=== PATIENT | male | born 1945 | race Caucasian/White ===

== ENCOUNTER 2017-02-26 11:00 | Inpatient (IN) | payer MEDICARE, OTHER ==
[2017-03-03] MEDS ORDERED: ceFAZolin/DEXTROSE,ISO 2 GM/50 ML PIGGYBACK IV ONE (09:31)
[2017-03-03] MEDS ORDERED: TRANEXAMIC ACID 1,000 MG in NORMAL SALINE 100 ML IV SCH (09:31)
--- NOTE | 2017-03-06 14:40 | PREOPERATIVE H&P ---
History of Present Illness (Juan M Lindsey MD; 02/16/2017 11:41 AM) The patient is a 71 year old male who presents to the practice today for a who presents to the practice today for a transition into care. Note:: The patient is here for a follow-up with severe osteoarthritis of both of his knees. He has come in today because he is interested in scheduling knee replacement for his left knee. Allergies (Taylor Hernandez RN; 02/16/2017 10:16 AM) No Known Drug Allergies Family History (Taylor Hernandez RN; 02/16/2017 10:16 AM) Father @ 52 of [place] Mother @ 92 of CHF, HTN, Glaucoma Social History (Taylor Hernandez RN; 02/16/2017 10:16 AM) Tobacco Use non smoker Alcohol Use Drinks Rarely. Medication History (Taylor Hernandez RN; 02/16/2017 10:16 AM) Coreg (12.5MG Tablet, 1 (one) Oral two times daily, Taken starting 03/24/2012) Active. (entry data only) Valtrex (1GM Tablet, 2 Oral Q12hrs x 2 doses prn cold sores, Taken starting 03/2015) Active. Terazosin HCl (10MG Capsule, 1 Oral QHS, Taken starting 01/23/2016) Active. TraMADol HCl (50MG Tablet, 1 Oral QHS, plus 1 extra tab daily prn pain, Taken starting 08/19/2016) Active. Sanjana 128 (2% Solution, 1 gtt both eyes Ophthalmic four times daily) Active. Sanjana 128 (5% Ointment, both eyes Ophthalmic at bedtime) Active. Pravastatin Sodium (20MG Tablet, 1 tablet Oral at bedtime) Active. (Per Dr Meek) Melatonin (3MG Tablet, 1 Oral at bedtime) Active. Carvedilol (12.5MG Tablet, 1 tab Oral two times daily) Active. Amoxicillin (500MG Capsule, 4 Oral before dental) Active. Tylenol PM Extra Strength (one Oral at HS as needed) Specific dose unknown - Active. Lisinopril-Hydrochlorothiazide (20-25MG Tablet, one Oral daily) Active. Aleve (220MG Tablet, 2 Oral twice a day) Active. Medications Reconciled Vitals (Taylor Hernandez RN; 02/16/2017 10:15 AM) 02/16/2017 10:12 AM Weight: 261 lb Height: 64in Body Surface Area: 2.19 m Body Mass Index: 44.8 kg/m Temp.: 98F Pulse: 74 (Regular) Resp.: 16 (Unlabored) BP: 128/62 (Sitting, Left Arm, Standard) Physical Exam (Juan M Lindsey MD; 02/16/2017 11:42 AM) Musculoskeletal Note: : Physical examination today reveals that he has no appreciable soft tissue swelling or effusion. He does have full extension, and flexes 125. There is no varus or valgus instability. He is somewhat tender to palpation medially and laterally. There is no warmth or erythema. X-ray evaluation: We reviewed his previous radiographs, and again he has marked joint space narrowing especially in the lateral compartment as well as osteophyte formation both medially and laterally. He also has severe patellofemoral arthrosis. Assessment & Plan (Juan M Lindsey MD; 02/16/2017 11:43 AM) Primary localized osteoarthritis of both knees (M17.0) Note:: Assessment: Severe osteoarthritis of both knees. Plan: We again discussed treatment options, and he would like to pursue knee replacement surgery of his left knee. We will therefore seek medical clearance , and then plan on scheduling his procedure. We should see him shortly before that date to perform his preoperative evaluation. Signed by Juan M Lindsey MD (02/16/2017 11:44 AM) ERNESTO
== END 2017-03-03 10:59 | disposition home or self-care (01) | DRG 554 ==
LOC: IN 03-03 09:20
PROVIDERS: ADMIT Orthopaedic Surgery; ATTEND Orthopaedic Surgery
DX: M17.0 Bilateral primary osteoarthritis of knee (principal); Z53.09 Procedure and treatment not carried out because of other contraindication

== ENCOUNTER 2017-03-10 08:29 | Inpatient (IN) | payer MEDICARE, OTHER ==
--- NOTE | 2017-03-09 17:46 | HISTORY & PHYSICAL ---
DATE OF ADMISSION: 03/10/17 SURGEON: Juan M Lindsey MD ADMITTING DIAGNOSIS: Severe osteoarthritis of the left knee. HISTORY OF PRESENT ILLNESS: The patient is a 71-year-old male with a long standing history of osteoarthritis of his left knee. He has gone through many years of nonoperative treatment and his symptoms have become quite intolerable and have limited his activities of daily living. He is therefore being admitted for left total knee arthroplasty. PAST MEDICAL HISTORY 1. Coronary artery disease. 2. Hypertension. 3. Morbid obesity. 4. Hyperlipidemia. 5. Benign prostatic hypertrophy. 6. Venous stasis. 7. Sleep apnea. PAST SURGICAL HISTORY 1. Hip replacement of the right in 2008. 2. Hip replacement of the left in 2009. 3. Rotator cuff repair. 4. Appendectomy. MEDICATIONS Terazosin. Valtrex. Coreg. Melatonin. Carvedilol. Sanjana 128 2% solution. Pravastatin. Lisinopril. Aleve as needed. Tramadol as needed. ALLERGIES: No known drug allergies. SOCIAL HISTORY: The patient is a nonsmoker and reports rare alcohol use. FAMILY HISTORY: Noncontributory. REVIEW OF SYSTEMS: Negative for chest pain or shortness of breath. He has not had any unexplained fever or chills and has otherwise been healthy lately. Review of systems is otherwise noncontributory. PHYSICAL EXAMINATION GENERAL: Morbidly obese in no apparent distress. Alert and oriented x3. HEENT: Atraumatic/normocephalic. EOMI. NECK: Supple without adenopathy. CHEST: Regular rate and rhythm without murmur. LUNGS: Clear to auscultation. ABDOMEN: Soft, nontender. Normoactive bowel sounds. EXTREMITY: He has range of motion in his left knee to 0-130 degrees. There is no varus or valgus instability and a negative Tesfaye. He is tender to palpation both at the medial and lateral joint lines. There is no warmth or erythema and no effusion at this time. NEUROLOGIC: Nonfocal. IMAGING: Plain radiographs of the knee reveal that he has marked joint space narrowing on both sides with osteophyte formation both medially and laterally and fairly severe patellofemoral arthroses. ASSESSMENT: Severe osteoarthritis of the left knee. PLAN: The patient will be admitted to the hospital for left total knee arthroplasty. We have discussed the operation, risks, and indications. The risks of the procedure include but are not limited to blood loss or nerve injury , infection, persistent pain and stiffness or loss of motion of the knee, premature failure or loosening of the implants or deep vein thrombosis which would potentially lead to a fatal pulmonary embolism. The patient has acknowledged the risks and desires to go ahead and proceed as planned. ERNESTO
[2017-03-10] MEDS ORDERED: LIDOCAINE HCL 1% 20 ML VIAL SUBCUT ONE ×3 (09:32→11:50)
[2017-03-10] MEDS ORDERED: MIDAZOLAM HCL 2 MG/2 ML SYR IV ONE ×2 (09:32→09:33)
[2017-03-10] MEDS ORDERED: TRANEXAMIC ACID 1,000 MG in NORMAL SALINE 100 ML IV SCH ×5 (09:39→12:00)
[2017-03-10] MEDS ORDERED: NORMAL SALINE FLUSH 20 ML ONE (09:40)
[2017-03-10] MEDS ORDERED: MORPHINE SULFATE/PF 10 MG/10 ML VIAL ONE (09:40)
[2017-03-10] MEDS ORDERED: FENTANYL 100 MCG/2 ML VIAL ONE (09:40)
[2017-03-10] MEDS ORDERED: PHENYLEPHRINE HCL 10,000 MCG/ML VIAL ONE (09:40)
[2017-03-10] MEDS ORDERED: TETRACAINE HCL 1% 20 MG/2 ML AMP ONE (09:41)
[2017-03-10] MEDS ORDERED: EPHEDrine SULFATE 50 MG/ML VIAL ONE (09:41)
[2017-03-10] MEDS ORDERED: ceFAZolin 1 GM/10 ML VIAL ONE ×2 (09:42→09:57)
[2017-03-10] MEDS ORDERED: NORMAL SALINE MINI-BAG+ 200 ML IV ONE (09:43)
[2017-03-10] MEDS ORDERED: FAMOTIDINE IN SALINE, ISO-OSM 20 MG/50 ML PIGGYBACK IV SCH ×2 (09:45→11:50)
[2017-03-10] MEDS ORDERED: ceFAZolin/DEXTROSE,ISO 2 GM/50 ML PIGGYBACK IV ONE ×3 (10:00→11:50)
[2017-03-10] MEDS ORDERED: LACTATED RINGERS 1,000 ML IV SCH ×5 (10:00→12:00)
[2017-03-10] MEDS ORDERED: NORMAL SALINE FLUSH 40 ML ONE (10:00)
[2017-03-10] MEDS ORDERED: KETOROLAC TROMETHAMINE 30 MG/ML VIAL ONE (10:01)
[2017-03-10] MEDS ORDERED: MIDAZOLAM HCL 2 MG/2 ML VIAL ONE ×2 (10:01→10:39)
[2017-03-10] MEDS ORDERED: ROPIVACAINE HCL 0.5% 30 ML ONE (10:01)
[2017-03-10] MEDS ORDERED: LIDOCAINE HCL/PF 1% 30 ML VIAL ONE (10:15)
[2017-03-10] MEDS ORDERED: DIPHENHYDRAMINE 25 MG CAPSULE PO PRN ×4 (11:47→13:56)
[2017-03-10] MEDS ORDERED: ONDANSETRON HCL 4 MG/2 ML VIAL IV PRN ×3 (11:47→13:56)
[2017-03-10] MEDS ORDERED: FENTANYL 100 MCG/2 ML VIAL IV PRN ×2 (11:47→11:50)
[2017-03-10] MEDS ORDERED: NALBUPHINE HCL 10 MG/ML AMP IV PRN ×4 (11:47→13:56)
[2017-03-10] MEDS ORDERED: DIPHENHYDRAMINE 50 MG/ML VIAL IV PRN ×4 (11:47→13:56)
[2017-03-10] MEDS ORDERED: NALOXONE HCL 0.4 MG/ML VIAL IV PRN ×12 (11:47→13:56)
[2017-03-10] MEDS ORDERED: MORPHINE SULFATE 10 MG/ML SYR IV PRN ×2 (11:47→11:50)
[2017-03-10] MEDS ORDERED: BUPIVACAINE/EPI 0.25% 1 VIAL VIAL ONE (12:59)
--- NOTE | 2017-03-10 13:14 | PROCEDURE NOTE: Orthopedics ---
Orthopedic Procedure note - Brief Operative Note Date of procedure: 03/10/17 Pre-Op Diagnosis: PRIMARY OSTEOARTHRITIS OF LEFT KNEE Post-op diagnosis: same Procedure: L TKA Implants: CAMILO. TIBIA LOT [id number] REF [id number] EXP 12/26/2026. FEMUR LOT [id number] REF [id number] EXP 05/28/2025. PATELLA LOT [id number] REF [id number] EXP 09/27/2024. ARTICULAR SURFACE MEDIAL CONGRUENT LEFT 10 MM REF# [id number], LOT#[id number], EXP.DATE:06/2021 Anesthesia Type: Spinal Physician: LETITIA SANCHEZ Estimated Blood Loss: 10 Total Tourniquet Time (mins): 120 Specimen/Pathology: none sent Sponge/instrument count: correct X-ray/Fluoroscopy: No Condition: stable Disposition: PACU
[2017-03-10] MEDS ORDERED: DEXTROSE 5% LACTATED RINGERS 1,000 ML IV SCH (14:00)
[2017-03-10] MEDS ORDERED: WATER IRRIG 1,000 ML BOTTLE ONE (14:57)
[2017-03-10] MEDS: ceFAZolin 1 GM in NORMAL SALINE MINI-BAG+ 100 ML IV SCH ×2 (15:20→22:21)
[2017-03-10] MEDS ORDERED: TRANEXAMIC ACID 1,000 MG/10 ML VIAL IV ONE (16:00)
[2017-03-10] MEDS ORDERED: SODIUM CHLORIDE OP SCH (16:00)
[2017-03-10] MEDS ORDERED: [UNRECOGNIZED DRUG - OTHER] OP SCH (16:00)
[2017-03-10] MEDS: POLYVINYL ALCOHOL 1.4% OPHTH 75 DROP/15 ML BTL OPHTHALMIC SCH ×2 (17:00→20:20)
--- NOTE | 2017-03-10 19:49 | OPERATIVE REPORT ---
DATE OF SURGERY: 03/10/17 SURGEON: Juan M Lindsey MD PREOPERATIVE DIAGNOSIS: Severe osteoarthritis of the left knee. POSTOPERATIVE DIAGNOSIS: Severe osteoarthritis of the left knee. PROCEDURE PERFORMED: Left total knee arthroplasty. IMPLANTS USED: Abel Persona knee system with a size 8 uncemented femoral component, a size E cemented tibial tray and 10 mm medial congruent polyethylene insert. INDICATIONS FOR PROCEDURE: Patient is a 71-year-old male with a long standing history of severe osteoarthritis of the both of his knees, with the left being worse than the right. He has failed oil heaterman nonoperative management, and his symptoms have begun to severely limit his activities of daily living. He was therefore taken to the operating room for left total knee arthroplasty. SUMMARY: After informed consent was obtained, the patient was taken to the operating room where he was placed in the supine position under spinal block anesthesia. After adequate anesthesia was achieved, the left knee and lower extremity were prepped and draped in the usual sterile fashion, the limb was gently exsanguinated, and a tourniquet was inflated about the proximal thigh to 275 mmHg. A longitudinal incision was then performed over the anterior aspect of the knee and the underlying soft tissue was sharply dissected to reveal the extensor retinaculum. The extensor retinaculum was incised in a median parapatellar fashion, and then sharp dissection was carried out medially in order to expose the medial tibial plateau. The infrapatellar pat pad was then excised, and then a synovectomy was performed in the suprapatellar pouch. The knee was brought up into flexion, and the anterior cruciate ligament was resected, and a meniscectomy was performed. The medullary drill was used to enter the medullary canal, after which the intramedullary guide was pushed up into the canal. The distal femoral cutting guide was then positioned on the femur and held in position using pins. A distal femoral cut was performed at initially 10 mm, although we did take an additional 2 mm after the first cut appeared to be somewhat inadequate. The cutting guide was then removed, and attention was then focused on the proximal tibia. The tibial guide was positioned in order to allow 10 mm from the medial less involved side. The guide was then again held in place with pins, and then the proximal tibial cut was performed using an oscillating saw. We then brought the knee out into extension, and put the 10 mm spacing block into the knee. The knee was noted to easily achieve full extension with the spacer block and had good varus and valgus stability. Therefore, the knee was brought back up into flexion, and the distal femur was measured at a size 8. The 4-way cutting block was positioned on the distal femur , and then held in place using pins. The remaining femoral cuts were then performed using an oscillating saw. The femoral trial component was then tapped onto the distal femur, and the tibial trial component with the trial insert were placed into the proximal tibia. At that time, the proximal tibia was measured to a size E. The knee was then brought out into extension and noted to easily achieve full extension. Once again, he was noted to have very good varus and valgus stability and also had very good roll back with flexion. The knee was then brought out into extension, and the proximal tibia was marked for proper rotation using electrocautery. The patella was then measured and templated, after which the back side of the patella was resected using the patellar cutting guide and the oscillating saw. The drill template was then used to drill the lug holes into the patella, and then the patellar trial component was placed onto the back side of the patella. The patella was then reduced, and the knee was brought through a range of motion. The patella was noted to be somewhat unstable laterally, so we did perform a lateral release. Following the lateral release, the patella was noted to track quite well. Therefore, the trial patella was removed, and the knee was brought back up into flexion. The lug holes were then drilled into the distal femur, and then the remaining trial components were removed. The tibial tray was then repositioned with proper rotation and then completion of the proximal tibia was performed using the drill and keyhole punch. All the bony surfaces were then irrigated with copious amounts of sterile saline under pulsatile lavage, and the knee was brought into extension and extensively irrigated using pulsatile lavage. The excess fluid was drained from the knee while the plumber's assistant was mixing cement, and then the orthopedic cocktail was injected into the posterior capsule as well as the medial and lateral joint capsules. The knee was brought back up into flexion, at which time the tibial surface was carefully cleaned and dried, after which the tibial tray was cemented into position. The excess cement was removed, and then the uncemented femoral component was taped into position. The trial insert was placed back into the knee, and the knee was brought out back into extension in order to allow the cement to harden. The patella was then lavaged and dried, after which the patellar component was also cemented into position. Once again, the excess cement was removed. Once all the cement had hardened, the patella was reduced, and the knee was again moved through range of motion. Once again the knee was stable in both flexion and extension, easily achieved full extension, and had a very good roll back with minimal lift off at flexion. Therefore, the trial polyethylene insert was removed, and the component were irrigated one more time with pulsatile lavage. The polyethylene insert was then pressed into place using the lens inserter. The stability and motion was verified one last time, and then a deep drain was placed. The retinaculum was closed at the high tension points using #2 Fiberwire, and the remainder of the retinaculum was closed using #1 Vicryl in an interrupted [id number] fashion. The subcutaneous tissue was then closed in layers using 0 and 2-0 Vicryl, and then the skin was closed using skin ayaz. The skin was then injected locally using 0.25% Marcaine with epinephrine. A lightly compressive sterile dressing was then applied, and the patient was taken to the recovery room in stable condition. ESTIMATED BLOOD LOSS: Minimal. FLUIDS: Lactated ringers 2450 mL. TOURNIQUET TIME: 120 minutes. MTDD
[2017-03-10] MEDS: CARVEDILOL 12.5 MG TABLET PO SCH (20:18)
[2017-03-10] MEDS: CELECOXIB 100 MG CAPSULE PO SCH (20:18)
[2017-03-10] MEDS: PRAVASTATIN SODIUM 40 MG TABLET PO SCH (20:19)
[2017-03-10] MEDS: MELATONIN 3 MG TABLET PO SCH (20:20)
[2017-03-10] MEDS: DOCUSATE SODIUM 100 MG CAPSULE PO SCH (20:20)
[2017-03-11] MEDS: POLYVINYL ALCOHOL 1.4% OPHTH 75 DROP/15 ML BTL OPHTHALMIC SCH ×5 (03:54→21:15)
[2017-03-11] MEDS: ACETAMINOPHEN 325 MG TABLET PO PRN ×5 (03:55→18:43)
[2017-03-11] MEDS: ceFAZolin 1 GM in NORMAL SALINE MINI-BAG+ 100 ML IV SCH (06:07)
[2017-03-11 06:50] LABS: BASOPHILS 0.3 % (0.0-2.0); EOSINOPHILS 1.4 % (0.0-6.0); EOSINOPHILS# 0.1 X 10^3uL (0.0-0.4); HEMATOCRIT 41.9 % (42.0-54.0); HEMOGLOBIN 14.7 g/dL (14.0-18.0); LYMPHOCYTES 7.7 % (20.0-40.0); LYMPHOCYTES# 0.7 X 10^3uL (0.8-3.8); MEAN CELL VOLUME 93.3 fL (80.0-100.0); MEAN CORPUS. HGB CONCENTRATION 35.1 g/dL (32.0-36.0); MEAN CORPUSCULAR HEMOGLOBIN 32.8 pg (29.0-35.0); MEAN PLATELET VOLUME 9.2 fL (7.4-10.4); MONOCYTES 6.8 % (2.0-10.0); MONOCYTES# 0.6 X 10^3uL (0.2-1.0); NEUTROPHILS 83.8 % (54.0-75.0); NEUTROPHILS# 7.1 X 10^3uL (2.6-6.7); PLATELET COUNT 181 X 10^3uL (130-440); RED BLOOD COUNT 4.49 X 10^6uL (4.20-6.10); RED CELL DISTRIBUTION WIDTH 12.6 % (11.5-14.5); WHITE BLOOD COUNT 8.5 X 10^3uL (3.9-10.7)
[2017-03-11 06:56] LABS: BLOOD UREA NITROGEN 13 mg/dL (9-20); CALCIUM 8.8 mg/dL (8.4-10.2); CHLORIDE 101 mmol/L (98-107); EST GLOMERULAR FILTRATION RATE > 60 mL/min; GLUCOSE 118 mg/dL (70-100); SODIUM 135 mmol/L (137-145)
[2017-03-11] MEDS: CELECOXIB 100 MG CAPSULE PO SCH ×2 (08:31→21:16)
[2017-03-11] MEDS: DOCUSATE SODIUM 100 MG CAPSULE PO SCH ×2 (08:31→21:16)
[2017-03-11] MEDS: CARVEDILOL 12.5 MG TABLET PO SCH ×2 (08:32→21:16)
[2017-03-11] MEDS: HYDROCHLOROTHIAZIDE 25 MG TABLET PO SCH (08:33)
[2017-03-11] MEDS: ENOXAPARIN SODIUM 40 MG/0.4 ML SYR SUBCUT SCH (08:33)
[2017-03-11] MEDS: LISINOPRIL 20 MG TABLET PO SCH (08:34)
[2017-03-11] MEDS: MULTIVITAMINS THERAPEUTIC 1 TABLET PO SCH (08:35)
--- NOTE | 2017-03-11 09:04 | PROGRESS NOTE: Orthopedics ---
Orthopedic PN Subjective - Subjective Principal Diagnosis: Post op L TKA Post-op Day: 1 Interval history: Pt feels well today. Moderate pain. Has not yet gotten up. Ortho PN Objective Exam - Latest Vital Signs and I&O Latest Vital Signs/I&O: Vital Signs Temp 37.4 C 03/11/17 06:00 Pulse 81 03/11/17 06:00 Resp 12 03/11/17 06:00 BP 133/76 03/11/17 06:00 Pulse Ox 93 03/11/17 06:00 Intake & Output 03/10/17 03/11/17 03/11/17 17:59 05:59 17:59 Intake Total 2725 1605 Output Total 880 150 525 Balance 1845 1455 -525 Weight 117.48 kg 117.48 kg Intake: IV 2475 1200 Right Hand 2475 1200 Oral 250 405 Output: Drainage 30 150 Left Knee 30 150 Urine 475 525 Uretheral (Dhillon) 275 Other 375 Other: Urine Appearance Clear Clear Urine Color Straw Straw Uretheral (Dhillon) Pale Yellow Voiding Method Indwelling Catheter Indwelling Catheter - Post-Operative Exam Post-op Day: 1 Dressing Status: mild drainage Drainage Amount: minimal Drainage Description: sanguineous Active Motor: intact Sensation: intact - Lab Labs: Laboratory Last Values WBC 8.5 X 10^3uL (3.9-10.7) 03/11/17 06:05 RBC 4.49 X 10^6uL (4.20-6.10) 03/11/17 06:05 Hgb 14.7 g/dL (14.0-18.0) 03/11/17 06:05 Hct 41.9 % (42.0-54.0) L 03/11/17 06:05 MCV 93.3 fL (80.0-100.0) 03/11/17 06:05 MCH 32.8 pg (29.0-35.0) 03/11/17 06:05 MCHC 35.1 g/dL (32.0-36.0) 03/11/17 06:05 RDW 12.6 % (11.5-14.5) 03/11/17 06:05 Plt Count 181 X 10^3uL (130-440) 03/11/17 06:05 MPV 9.2 fL (7.4-10.4) 03/11/17 06:05 Neutrophils % 83.8 % (54.0-75.0) H 03/11/17 06:05 Lymphocytes % 7.7 % (20.0-40.0) L 03/11/17 06:05 Eosinophils % 1.4 % (0.0-6.0) 03/11/17 06:05 Basophils % 0.3 % (0.0-2.0) 03/11/17 06:05 Neutrophils # 7.1 X 10^3uL (2.6-6.7) H 03/11/17 06:05 Lymphocytes # 0.7 X 10^3uL (0.8-3.8) L 03/11/17 06:05 Monocytes 6.8 % (2.0-10.0) 03/11/17 06:05 Monocytes # 0.6 X 10^3uL (0.2-1.0) 03/11/17 06:05 Eosinophils # 0.1 X 10^3uL (0.0-0.4) 03/11/17 06:05 Basophils # 0.0 X 10^3uL (0.0-0.1) 03/11/17 06:05 Capillary INR 1.0 (0.8-1.2) 03/10/17 08:34 Sodium 135 mmol/L (137-145) L 03/11/17 06:05 Potassium 4.0 mmol/L (3.5-5.1) 03/11/17 06:05 Chloride 101 mmol/L (98-107) 03/11/17 06:05 Carbon Dioxide 24 mmol/L (22-30) 03/11/17 06:05 BUN 13 mg/dL (9-20) 03/11/17 06:05 Creatinine 0.9 mg/dL (0.7-1.3) 03/11/17 06:05 GFR Calculation > 60 mL/min 03/11/17 06:05 Glucose 118 mg/dL (70-100) H 03/11/17 06:05 Calcium 8.8 mg/dL (8.4-10.2) 03/11/17 06:05 Assessment and Plan-Ortho - Date of Encounter Date of Encounter: 03/11/17 (1) Status post total knee replacement, left Assessment and plan: Doing fairly well. Plan: Begin mobilization/PT. Monitor H/H Current Visit: Yes Quality Questions - VTE Prophylaxis Assessment VTE Present on Admission?: No Patient at risk for venous thromboembolism?: Yes VTE Risk Level: High Risk Pharmaceutical VTE prophylaxis contraindication reason: N/A- VTE prophylaxsis ordered Mechanical VTE prophylaxis contraindication reason: N/A- VTE prophylaxsis ordered
[2017-03-11] MEDS: oxyCODONE HCL CR 10 MG TAB.SR.12H PO SCH (10:26)
[2017-03-11] MEDS: PRAVASTATIN SODIUM 40 MG TABLET PO SCH (21:16)
[2017-03-11] MEDS: MELATONIN 3 MG TABLET PO SCH (21:16)
[2017-03-12] MEDS: POLYVINYL ALCOHOL 1.4% OPHTH 75 DROP/15 ML BTL OPHTHALMIC SCH ×3 (03:33→11:38)
[2017-03-12] MEDS: oxyCODONE HCL CR 10 MG TAB.SR.12H PO SCH ×2 (04:57→10:22)
[2017-03-12] MEDS: ACETAMINOPHEN 325 MG TABLET PO PRN ×2 (04:57→08:35)
[2017-03-12 06:14] LABS: HEMATOCRIT 43.6 % (42.0-54.0); HEMOGLOBIN 15.2 g/dL (14.0-18.0)
[2017-03-12] MEDS: CELECOXIB 100 MG CAPSULE PO SCH (08:29)
[2017-03-12] MEDS: DOCUSATE SODIUM 100 MG CAPSULE PO SCH (08:33)
[2017-03-12] MEDS: LISINOPRIL 20 MG TABLET PO SCH (08:34)
[2017-03-12] MEDS: MULTIVITAMINS THERAPEUTIC 1 TABLET PO SCH (08:35)
[2017-03-12] MEDS: ENOXAPARIN SODIUM 40 MG/0.4 ML SYR SUBCUT SCH (08:36)
[2017-03-12] MEDS: CARVEDILOL 12.5 MG TABLET PO SCH (08:36)
[2017-03-12] MEDS: HYDROCHLOROTHIAZIDE 25 MG TABLET PO SCH (08:36)
--- NOTE | 2017-03-12 11:02 | PROGRESS NOTE: Orthopedics ---
Orthopedic PN Subjective - Subjective Principal Diagnosis: Post op L TKA Post-op Day: 2 Interval history: The patient feels well today, with much less pain than he had yesterday. He has already walked a considerable distance up and down the [place] has practiced on stairs. Ortho PN Objective Exam - Latest Vital Signs and I&O Latest Vital Signs/I&O: Vital Signs Temp 37.6 C 03/12/17 05:52 Pulse 95 H 03/12/17 05:52 Resp 20 03/12/17 09:00 BP 163/80 03/12/17 05:52 Pulse Ox 91 03/12/17 09:00 Intake & Output 03/11/17 03/12/17 03/12/17 17:59 05:59 17:59 Intake Total 1310 250 Output Total 1175 Balance 135 250 Weight 117.48 kg Intake: Oral 1310 250 Output: Drainage 125 Left Knee 125 Urine 1050 Other: Urine Appearance Clear Clear Clear Urine Color Pale Pale Yellow Yellow Yellow Voiding Method Toilet Toilet Toilet # Voids 3 - Post-Operative Exam Incision: Present: clean and dry Drainage Amount: minimal Drainage Description: sanguineous Active Motor: intact Sensation: intact Kenia's sign: Negative Calf tenderness: no - Lab Labs: Laboratory Last Values WBC 8.5 X 10^3uL (3.9-10.7) 03/11/17 06:05 RBC 4.49 X 10^6uL (4.20-6.10) 03/11/17 06:05 Hgb 15.2 g/dL (14.0-18.0) 03/12/17 05:10 Hct 43.6 % (42.0-54.0) 03/12/17 05:10 MCV 93.3 fL (80.0-100.0) 03/11/17 06:05 MCH 32.8 pg (29.0-35.0) 03/11/17 06:05 MCHC 35.1 g/dL (32.0-36.0) 03/11/17 06:05 RDW 12.6 % (11.5-14.5) 03/11/17 06:05 Plt Count 181 X 10^3uL (130-440) 03/11/17 06:05 MPV 9.2 fL (7.4-10.4) 03/11/17 06:05 Neutrophils % 83.8 % (54.0-75.0) H 03/11/17 06:05 Lymphocytes % 7.7 % (20.0-40.0) L 03/11/17 06:05 Eosinophils % 1.4 % (0.0-6.0) 03/11/17 06:05 Basophils % 0.3 % (0.0-2.0) 03/11/17 06:05 Neutrophils # 7.1 X 10^3uL (2.6-6.7) H 03/11/17 06:05 Lymphocytes # 0.7 X 10^3uL (0.8-3.8) L 03/11/17 06:05 Monocytes 6.8 % (2.0-10.0) 03/11/17 06:05 Monocytes # 0.6 X 10^3uL (0.2-1.0) 03/11/17 06:05 Eosinophils # 0.1 X 10^3uL (0.0-0.4) 03/11/17 06:05 Basophils # 0.0 X 10^3uL (0.0-0.1) 03/11/17 06:05 Capillary INR 1.0 (0.8-1.2) 03/10/17 08:34 Sodium 135 mmol/L (137-145) L 03/11/17 06:05 Potassium 4.0 mmol/L (3.5-5.1) 03/11/17 06:05 Chloride 101 mmol/L (98-107) 03/11/17 06:05 Carbon Dioxide 24 mmol/L (22-30) 03/11/17 06:05 BUN 13 mg/dL (9-20) 03/11/17 06:05 Creatinine 0.9 mg/dL (0.7-1.3) 03/11/17 06:05 GFR Calculation > 60 mL/min 03/11/17 06:05 Glucose 118 mg/dL (70-100) H 03/11/17 06:05 Calcium 8.8 mg/dL (8.4-10.2) 03/11/17 06:05 Assessment and Plan-Ortho - Date of Encounter Date of Encounter: 03/12/17 (1) Status post total knee replacement, left Assessment and plan: Assessment: The patient is doing well postop left total knee arthroplasty. Plan: The patient will be discharged home today He will have home therapy, and home in approximately 3 weeks for routine postoperative evaluation. Current Visit: Yes
[2017-03-12 11:59] VITALS: BP 146/67; PULSE 72; RESP 16; TEMP 98.7; O2SAT 96
--- NOTE | 2017-03-16 19:33 | DISCHARGE SUMMARY ---
DATE OF ADMISSION: 03/10/17 DATE OF DISCHARGE: 03/12/17 ATTENDING PHYSICIAN: Juan M Lindsey MD ADMITTING DIAGNOSIS: Severe osteoarthritis of the left knee. For the history of present illness as well as admission information, please refer to the typed history and physical examination. HOSPITAL COURSE: The patient was admitted to the hospital on 03/10/17 and was taken to the operating room at which time he underwent left total knee arthoplasty. The patient tolerated the procedure very well, and while he did have quite a bit of postoperative pain the morning of postoperative day #1, he quickly improved and was able to mobilize beginning that day. On postoperative day #2, he was quite mobile and independent and therefore was discharged in stable condition. FINAL DIAGNOSIS: Severe osteoarthritis of the left knee. OPERATIONS/PROCEDURES: Left total knee arthroplasty using the Abel Persona knee system. COMPLICATIONS: None. CONSULTATIONS: Physical therapy, occupational therapy and discharge planning. MEDICATIONS: Please refer to the medication reconciliation form. DISPOSITION/RECOMMENDATIONS 1. The patient is discharged to home. 2. He can continue to be weightbearing as tolerated. 3. He should continue working on range of motion in his knee as well as gait training. 4. He will have home therapy for motion gait training, and home nursing for dressing changes and staple removal. 5. He should follow up at the orthopedic clinic approximately 4 weeks postop for routine postop evaluation. ERNESTO
== END 2017-03-12 11:19 | disposition home or self-care (01) | DRG 470 ==
LOC: IN 08:29
PROVIDERS: ADMIT Orthopaedic Surgery; ATTEND Orthopaedic Surgery
PROC: 0SRD0JA Replacement of Left Knee Joint with Synthetic Substitute, Uncemented, Open Approach (ICD-10-PCS; principal; 2017-03-10)
DX: M17.12 Unilateral primary osteoarthritis, left knee (principal); I25.10 Atherosclerotic heart disease of native coronary artery without angina pectoris; I10 Essential (primary) hypertension; E66.9 Obesity, unspecified; E78.5 Hyperlipidemia, unspecified; N40.0 Benign prostatic hyperplasia without lower urinary tract symptoms; G47.30 Sleep apnea, unspecified; I87.8 Other specified disorders of veins; Z79.899 Other long term (current) drug therapy
CPT/HCPCS: 36415; 80048; 85014; 85018; 85025; 85610; A4217; C1776; J0171; J0690; J1650; J1885; J2250; J2370; J2405; J2795; J3010